=== PATIENT | male | born 1980 | race Two or more races ===

== ENCOUNTER 2022-11-23 06:37 | Emergency (ER) | payer MEDICAID ==
[~2022-11-23] VITALS: Ht 167.6 cm; Wt 85.0 kg
[2022-11-23 06:47] VITALS: BP 115/59
[2022-11-23] MEDS ORDERED: TOPUD PO (06:55)
== END 2022-11-23 07:05 | disposition home or self-care (01) ==
LOC: ER 06:37
DX: S01.01XA Laceration without foreign body of scalp, initial encounter (principal); X99.9XXA Assault by unspecified sharp object, initial encounter; Y93.9 Activity, unspecified; Y92.9 Unspecified place or not applicable; Y99.9 Unspecified external cause status
CPT/HCPCS: 99283